=== PATIENT | male | born 1955 | race Caucasian/White ===

== ENCOUNTER 2018-08-20 10:55 | Day surgery (SDC) | payer BC ==
[2018-08-20] MEDS ORDERED: PROPOFOL 10 MG/ML VIAL IV ONE (10:56)
[2018-08-20] MEDS ORDERED: LIDOCAINE 2% MDV (20MG/ML) 20ML VIAL IV ONE (10:56)
--- NOTE | 2018-08-21 10:00 | Operative Note ---
DATE OF SURGERY: 08/20/2018 OPERATION: COLONOSCOPY. PREOPERATIVE DIAGNOSIS: Colon cancer screening. POSTOPERATIVE DIAGNOSES: 1. Sigmoid diverticulosis. 2. Normal-appearing sigmoid anastomosis. 3. Otherwise normal exam. ESTIMATED BLOOD LOSS: None. PREPARATION QUALITY: Good. SPECIMENS: None. COMPLICATIONS: None apparent. PROCEDURE: After informed consent was obtained from the patient, he was placed in the left lateral decubitus position in the endoscopy suite, sedated and monitored by the department of anesthesia. Digital rectal examination was unremarkable. A well-lubricated [id number] colonoscope was inserted into the rectum and advanced to the cecum. Preparation quality was good. The cecum, cecal bulb, ileocecal valve, appendiceal orifice, ascending colon, transverse colon, descending colon, sigmoid colon, and rectum were free of inflammatory changes, mass lesions, or polyps. There were diverticula noted in the remaining sigmoid colon. There also appeared to be a normal-appearing anastomosis. No inflammation was seen throughout the length of the colon. Forward and J-turn views of the rectum and anorectum were unremarkable. The endoscope was straightened, the rectal ampulla deflated, and the endoscope was removed. RECOMMENDATIONS: I would suggest the patient follow a high-fiber diet and use a fiber supplement. I would recommend a repeat exam in 10 years based on lack of prior adenomas and average risk. As always, thank you for allowing me to participate in the healthcare of your patients. CC: DO MEÑO Winslow
== END 2018-08-20 12:18 | disposition home or self-care (01) ==
LOC: HOP 10:55
PROVIDERS: ATTEND Internal Medicine Gastroenterology
DX: Z12.11 Encounter for screening for malignant neoplasm of colon (principal); K57.30 Diverticulosis of large intestine without perforation or abscess without bleeding; I10 Essential (primary) hypertension
CPT/HCPCS: 00812; G0121